=== PATIENT | female | born 1985 | race Caucasian/White ===

== ENCOUNTER 2018-06-22 09:44 | Emergency (ER) | payer OTHER ==
[~2018-06-22] VITALS: Ht 152.4 cm; Wt 53.5 kg
[2018-06-22 09:56] VITALS: BP 103/63
[2018-06-22] MEDS ORDERED: IBUP600T16 PO (10:09)
--- NOTE | 2018-06-22 10:09 | PHYS DOC ---
Adult General Chief Complaint Chief Complaint: UPPER EXTREMITY PAIN HPI HPI Patient is a 32 year old right-handed female who presents with is of left fourth and fifth finger numbness. Patient states she fell asleep on her right side on recliner last night and when she woke up after an hour she had numbness of the fourth and fifth finger of left hand with radiation to her wrist and forearm that did not get better today after several hours. Patient complaining of marked weakness of his hand without headache, nausea and vomiting, other injuries. Review of Systems Review of Systems Constitutional: Denies fever or chills [] Eyes: Denies change in visual acuity, redness, or eye pain [] HENT: Denies nasal congestion or sore throat [] Respiratory: Denies cough or shortness of breath [] Cardiovascular: No additional information not addressed in HPI [] GI: Denies abdominal pain, nausea, vomiting, bloody stools or diarrhea [] : Denies dysuria or hematuria [] Musculoskeletal: Denies back pain or joint pain [] Integument: Denies rash or skin lesions [] Neurologic: Denies headache, focal weakness, reports sensory changes [] Endocrine: Denies polyuria or polydipsia [] All other systems were reviewed and found to be within normal limits, except as documented in this note. Physical Exam Physical Exam Constitutional: Well developed, well nourished, mild distress, non-toxic appearance. [] HENT: Normocephalic, atraumatic. Eyes: PERRLA, EOMI, conjunctiva normal, no discharge. [] Neck: Normal range of motion, no tenderness, supple, no stridor. [] Cardiovascular:Heart rate regular rhythm, no murmur [] Lungs & Thorax: Bilateral breath sounds clear to auscultation [] Skin: Warm, dry, no erythema, no rash. [] Back: No tenderness, no CVA tenderness. [] Extremities: No tenderness, no cyanosis, no clubbing, ROM intact, no edema. [] Neurologic: Alert and oriented X 3, no focal deficits noted, left fourth and fifth finger with decrease of sensation. [] Psychologic: Affect normal, judgement normal, mood normal. [] EKG EKG [] Radiology/Procedures Radiology/Procedures [] Course & Med Decision Making Course & Med Decision Making Evolution of patient in ER showed 31-year-old female patient who fell asleep on left hand and developed hyposthesia left fingers since last night. Wrist splint was applied and patient instructed to take ibuprofen. Dragon Disclaimer Dragon Disclaimer This electronic medical record was generated, in whole or in part, using a voice recognition dictation system. Departure Departure: Impression: Primary Impression: Median nerve compression in left forearm Disposition: 01 HOME, SELF-CARE (1008) Condition: IMPROVED Referrals: PIERRE HAUSER (PCP) Patient Instructions: Carpal Tunnel Syndrome Additional Instructions: Apply warm compresses on the affected area Follow-up with your primary care physician in 3-5 days Return to ER if not getting better Scripts Ibuprofen (IBUPROFEN) 600 Mg Tablet 600 MG PO TID for pain, #20 TAB Prov: ALYSIA RIZZO MD 06/22/18 ALYSIA RIZZO MD Jun 22, 2018 10:09
== END 2018-06-22 10:15 | disposition home or self-care (01) ==
LOC: EDBD 09:44 → ER 09:44
DX: G56.02 Carpal tunnel syndrome, left upper limb (principal)
CPT/HCPCS: 29125; 99283

== ENCOUNTER 2018-07-05 06:56 | Emergency (ER) | payer OTHER ==
[~2018-07-05 06:56] MED LIST: IBUP600T16 PO
[2018-07-05 07:02] VITALS: BP 109/72
[2018-07-05] MEDS ORDERED: TETRACAINE 0.5% OPHTH SOLUTION 4ML BOTTLE. ONE (07:07)
[2018-07-05] MEDS ORDERED: FLUORESCEIN 1MG EYE STRIP. ONE (07:07)
[2018-07-05] MEDS ORDERED: ERYT1OIN6 OP (07:18)
--- NOTE | 2018-07-05 07:18 | PHYS DOC ---
Past History Past Medical History: No Pertinent History Past Surgical History: No Surgical History Alcohol Use: None Drug Use: None Adult General Chief Complaint Chief Complaint: EYE PROBLEMS HPI HPI 32-year-old female presenting the emergency department today with an injury to her left eye. Her 7 week old son scratched her in the eye this morning. She has a sharp pain in the eye that is worse when she opens it. She reports increased tearing with no changes in her vision. She denies wearing contacts. The pain is nonradiating mild to moderate and without alleviating factors. Review of systems is negative for any other injuries. ED course: 32-year-old female presenting to the emergency department with a corneal abrasion from her 7-week-old son. I exam revealed a corneal abrasion. Negative Velma's. Otherwise unremarkable exam. Not a contact lens wearer. We will initiate topical erythromycin and follow-up with ophthalmology in 1-2 days.The patient has been examined and was not found to have an emergency medical condition. The patient was then discharged home in stable condition. They were to return if their symptoms worsened or if they were concerned for any reason. They were also instructed to return to the emergency department if they were unable to get the recommended and appropriate follow-up. Face-to- face discharge instructions and return precautions were given. Patient's questions were answered to their satisfaction. Patient is comfortable with plan. Current Medications Current Medications Current Medications Medications (Trade) Dose Ordered Sig/David Start Time Stop Time Status Last Admin Dose Admin Fluorescein Sodium (Ful-Polly 1mg) 1 strip STK-MED ONCE 07/05/18 07:07 07/05/18 07:08 DC Tetracaine HCl (Tetracaine) 40 drop STK-MED ONCE 07/05/18 07:07 07/05/18 07:08 DC Allergies Allergies Allergies Coded Allergies Type Severity Reaction Last Updated Verified Penicillins Allergy Unknown 07/05/18 Yes Physical Exam Physical Exam Constitutional: Well developed, well nourished, no acute distress, non-toxic appearance. [] HENT: Normocephalic, atraumatic, bilateral external ears normal, oropharynx moist, no oral exudates, nose normal. [] Eyes: Left Eye Exam: Visual [place]: Intact in all four quadrants bilaterally Lac ducts/glands: No swelling Lids w/ evertion: Normal, no foreign body Conj/[place]: Clear conjunctiva with corneal abrasion on the left eye at approximately 3 o clock not midline. Velma's test is negative. Anterior Chamber: Clear/quiet Neck: Normal range of motion, no tenderness, supple, no stridor. [] Cardiovascular:Heart rate regular rhythm, no murmur [] Lungs & Thorax: Bilateral breath sounds clear to auscultation [] Abdomen: Bowel sounds normal, soft, no tenderness, no masses, no pulsatile masses. [] Skin: Warm, dry, no erythema, no rash. [] Back: No tenderness, no CVA tenderness. [] Extremities: No tenderness, no cyanosis, no clubbing, ROM intact, no edema. [] Neurologic: Alert and oriented X 3, normal motor function, normal sensory function, no focal deficits noted. [] Psychologic: Affect normal, judgement normal, mood normal. [] EKG EKG [] Radiology/Procedures Radiology/Procedures [] Course & Med Decision Making Course & Med Decision Making Pertinent Labs and Imaging studies reviewed. (See chart for details) [] Dragon Disclaimer Dragon Disclaimer This electronic medical record was generated, in whole or in part, using a voice recognition dictation system. Departure Departure: Impression: Primary Impression: Corneal abrasion, left Disposition: 01 HOME, SELF-CARE Condition: STABLE Referrals: PIERRE HAUSER (PCP) Patient Instructions: Eye - Corneal Abrasion Additional Instructions: Thank you for allowing us to participate in your care today. Return to the emergency department you have any new or worsening symptoms, or if you are concerned for any reason. Return to emergency department if you have any new or concerning symptoms including but not limited to fever, chills, nausea, vomiting, intractable pain, any new rashes, chest pain, shortness of air , uncontrolled bleeding, difficulty breathing, and/or vision loss. Follow up with your eye doctor within 1-2 days. Call your Primary Doctor tomorrow and inform them of your visit today. If you do not have a primary care provider we are happy to provide you with a list of our primary care providers contact information. This condition should be evaluated by your primary care physician and any recommended consulting services for continued management within 2 days after discharge. If at any time, you are having difficulty getting into your primary care doctor or a specialist, return to the emergency department. Scripts Erythromycin Base (Erythromycin) 1 Gm Oint...g. 1 GM OP QID for corneal abrasion, #1 MISC Ophthalmic: Instill ~1 cm ribbon into left eye QID for 5 days. Prov: DEBBI RODRIGUEZ MD 07/05/18 DEBBI RODRIGUEZ MD Jul 05, 2018 07:18
[2018-07-05] MEDS ORDERED: FLUORESCEIN 1MG EYE STRIP. OS ONE (07:30)
[2018-07-05] MEDS ORDERED: TETRACAINE 0.5% OPHTH SOLUTION 4ML BOTTLE. OS ONE (07:30)
== END 2018-07-05 07:26 | disposition home or self-care (01) ==
LOC: ER 06:56
DX: S05.02XA Injury of conjunctiva and corneal abrasion without foreign body, left eye, initial encounter (principal); Z88.0 Allergy status to penicillin; W50.4XXA Accidental scratch by another person, initial encounter; Y93.89 Activity, other specified; Y92.89 Other specified places as the place of occurrence of the external cause; Y99.8 Other external cause status
CPT/HCPCS: 99283